=== PATIENT | female | born 1970 | race Caucasian/White ===

== ENCOUNTER 2017-11-17 10:17 | Emergency (ER) | payer OTHER ==
[~2017-11-17] VITALS: Ht 170.2 cm; Wt 58.1 kg
--- NOTE | 2017-11-17 12:33 | ED HEAD/FACIAL INJ COMPLAINT ---
History of Present Illness General Chief Complaint: Fall Stated Complaint: FALL THIS AM ON RIGHT SIDE, HIT HEAD, +LOC Source: patient Exam Limitations: no limitations Vital Signs & Intake/Output Vital Signs & Intake/Output Vital Signs Date Time Temp Pulse Resp B/P B/P Pulse O2 O2 Flow FiO2 Mean Ox Delivery Rate 11/17 1415 97.8 58 18 97/61 100 11/17 1210 98 Room Air 11/17 1035 98.7 54 20 119/77 96 Room Air Allergies Coded Allergies: Sulfa (Sulfonamide Antibiotics) (UNKNOWN 11/17/17) Reconcile Medications No Known Home Medications Triage Note: PT STATES SHE BECAME ILL LAST NIGHT AFTER EATING SUSHI. THE LAST TIME SHE GOT UP TO VOMIT SHE WALKED INTO THE BATHROOM AND "BLACKED OUT". STATES SHE FELL AND HIT THE TILE FLOOR WITH +LOC. PT C/O H/A AND BODY PAIN AND C-SPINE TENDERNESS. C-COLLAR PLACED Triage Nurses Notes Reviewed? yes Onset: Evening Severity: moderate Severity Numbers: 7 Location: global Method of Injury: direct blow Loss of Consciousness: brief (seconds) Associated Symptoms: headaches HPI: 47-year-old female presented to the emergency department reporting that she was having nausea and vomiting yesterday related to food she had eaten. She states that about 2 AM this morning she had gotten up to go to the bathroom to vomit and she states the next thing she knew she was on the floor and her was standing over her. She states that she had hit her head because she had felt bleeding from her forehead and she had loss consciousness. She states she feels overall tired, nauseous however uncertain if this is related to GI bug or head trauma. She also states that this morning she felt that she was taking longer to process things and a family member had thoughts that she did not seem herself She reports the most pain being in her head and her right shoulder, although she does report full body pain. (Kirstie Mak) Past History Travel History Traveled to [place] past 21 day No Medical History Any Pertinent Medical History? see below for history Neurological: NONE EENT: NONE Cardiovascular: NONE Respiratory: NONE Gastrointestinal: Crohn's disease Hepatic: NONE Renal: NONE Musculoskeletal: NONE Psychiatric: NONE REHABILITATOR/Reproductive: mirena iud Surgical History Surgical History: non-contributory Psychosocial History What is your primary language Khmer Tobacco Use: Current Daily Use Daily Tobacco Use Amount/Type: => 5 Cigarettes daily ETOH Use: occasional use Illicit Drug Use: denies illicit drug use Family History Hx Contributory? No (Kirstie Mak) Review of Systems Review of Systems Constitutional: Reports: see HPI. EENTM: Reports: no symptoms. Respiratory: Reports: no symptoms. Cardiovascular: Reports: no symptoms. GI: Reports: no symptoms. Genitourinary: Reports: no symptoms. Musculoskeletal: Reports: see HPI. Skin: Reports: no symptoms. Neurological/Psychological: Reports: see HPI. Hematologic/Endocrine: Reports: no symptoms. Immunologic/Allergic: Reports: no symptoms. All Other Systems: Reviewed and Negative (Kirstie Mak) Physical Exam Physical Exam General Appearance: well developed/nourished, no apparent distress, alert, awake , comfortable Head: normal appearance, small contusion on right forehead, small healed 2cm linear laceration Eyes: Bilateral: normal appearance, PERRL, EOMI. Ears, Nose, Throat: normal pharynx, normal ENT inspection, hearing grossly normal, normal tympanic membranes, no blood Neck: normal inspection, supple, limited range of motion, c-spine collar in place Respiratory: normal breath sounds, chest non-tender, no respiratory distress, lungs clear Cardiovascular: regular rate/rhythm, normal peripheral pulses Gastrointestinal: normal bowel sounds, soft, non-tender Back: normal inspection, normal range of motion, no vertebral tenderness Extremities: normal inspection, normal capillary refill, normal range of motion, no edema, pelvis stable Psychiatric: awake, alert, oriented x 3 Cranial Nerves: normal hearing, normal speech, PERRL, cranial nerves all normal, oriented to person, place, and time Motor/Sensory: no motor/sensory deficits Skin: intact, normal color, warm/dry (Kirstie Mak) Progress Differential Diagnosis: c-spine injury, ICH, orbit fracture Plan of Care: Orders Procedure Date/time Status TROPONIN LEVEL 11/17 1230 Complete LIPASE 11/17 1230 Complete COMPREHENSIVE METABOLIC PANEL 11/17 1230 Complete CBC WITHOUT DIFFERENTIAL 11/17 1230 Complete EKG 11/17 1230 Active Laboratory Tests 11/17/17 1257: Anion Gap 11, Estimated GFR > 60, BUN/Creatinine Ratio 22.9, Glucose 87, Calcium 9.6, Total Bilirubin 0.9, AST 29, ALT 43, Alkaline Phosphatase 73, Troponin I < 0.01, Total Protein 7.5, Albumin 4.4, Globulin 3.1, Albumin/Globulin Ratio 1.4, Lipase 102, CBC w Diff MAN DIFF ORDERED, RBC 5.33, MCV 93.2, MCH 31.3 H, MCHC 33.6, RDW 14.0, MPV 8.8, Gran % 85.5 H, Lymphocytes % 7.3 L, Monocytes % 6.5, Eosinophils % 0.7, Basophils % 0, Absolute Granulocytes 8.9 H, Absolute Lymphocytes 0.8 L, Absolute Monocytes 0.7 H, Absolute Eosinophils 0.1, Absolute Basophils 0, Platelet Estimate ADEQUATE, Normocytic RBCs VERIFIED, Normochromic RBCs VERIFIED 47 year old female with blunt head trauma and LOC this morning at 2 am. Neurological exam and rest of exam unremarkable. No slurred speech or disorientation. Patient was given tylenol, NS, and zofran IV. Tolerated well, feeling better after medication and fluids. Brain imaging/neck imaging and bloodwork normal. Patient offered rx for zofran or pain medication to go home with however she declined, reporting she felt better. She is advised to rest at home, take tylenol/ibuprofen as needed, and discussed the importance of returning to the ED with any headache, visual changes, nausea/vom, or any other new or worsening symptoms. C-spine collar was removed and patient stable upon discharge. Diagnostic Imaging: Viewed by Me: CT Scan. Discussed w/RAD: CT Scan. Radiology Impression: PATIENT: ORTIZ MATAMOROS PRESENT AGE: 47 PATIENT ACCOUNT NO: [id number] : 69 LOCATION: [facility] ([facility]) ORDERING PHYSICIAN: Kirstie BELTRAN SERVICE DATE: 11/17/17 EXAM TYPE: CAT - CT HEAD WO IV CONTRAST EXAMINATION: CT HEAD WITHOUT CONTRAST CLINICAL INFORMATION: Head trauma. COMPARISON: None TECHNIQUE: Contiguous axial imaging was performed from the skull base to vertex without intravenous administration of contrast. DLP: 847.3 mGy-cm FINDINGS: There is no evidence of acute intracranial hemorrhage or territorial infarction. No abnormal mass effect or midline shift is seen. Daugherty to white matter differentiation is well preserved. No extra-axial fluid collections are identified. The ventricles are normal in size. There is no abnormal attenuation within the brain parenchyma. The osseous structures and soft tissues are normal. The mastoid air cells and visualized portions of the paranasal sinuses are well aerated. IMPRESSION: No acute intracranial pathology. DICTATED BY: Rosalio Glynn MD DATE/TIME DICTATED:11/28 ROULETTE DEALER:CHRISTIAN DATE/TIME TRANSCRIBED:11/17/171312 CONFIDENTIAL, DO NOT COPY WITHOUT APPROPRIATE AUTHORIZATION. <Electronically signed in Other Vendor System> SIGNED BY: Rosalio Glynn MD 11/17/171317 , PATIENT: ORTIZ MATAMOROS PRESENT AGE: 47 PATIENT ACCOUNT NO: [id number] : 69 LOCATION: [facility] ([facility]) ORDERING PHYSICIAN: Kirstie BELTRAN SERVICE DATE: 11/17/17 EXAM TYPE: CAT - CT CERV SPINE WO IV CONTRAST EXAMINATION: CT CERVICAL SPINE WITHOUT CONTRAST CLINICAL INFORMATION: Blunt trauma. Neck collar in place. COMPARISON: Head CT from 11/17/2017. TECHNIQUE: Noncontrast multidetector CT imaging examination of the cervical spine was performed. DLP: Please refer to the dose report given on the head CT ( which includes C-spine) FINDINGS: There is mild straightening of the cervical lordosis, presumably related to the presence of a cervical collar. The occipital condyles, C1 and C2 lateral masses, dens and atlantodental articulation are intact. The vertebral body heights and alignment are maintained. No acute fractures in the anterior or posterior elements. No prevertebral soft tissue swelling. At C5-C6, there is mild degenerative disc space narrowing and traction osteophyte formation. The central spinal canal and neural foramina are widely patent. The facet joints are unremarkable. No epidural hematoma or focal fluid collection in the visualized neck. The examined lung apices are clear. Thyroid gland is unremarkable. IMPRESSION: 1. No acute fracture or malalignment of the cervical spine. 2. Mild discovertebral degenerative change of C5-C6. DICTATED BY : Aris Driscoll MD DATE/TIME DICTATED:11/17/171347 ROULETTE DEALER: CHRISTIAN DATE/TIME TRANSCRIBED:11/17/171347 CONFIDENTIAL, DO NOT COPY WITHOUT APPROPRIATE AUTHORIZATION. <Electronically signed in Other Vendor System> SIGNED BY: Aris Driscoll MD 11/17/17 1400 (Kirstie Mak) Departure Departure Disposition: HOME OR SELF CARE Condition: Stable Clinical Impression Primary Impression: Blunt head trauma Qualifiers: Encounter type: initial encounter Qualified Code: S09.8XXA - Other specified injuries of head, initial encounter Referrals: Esperanza Noland MD (PCP/Family) Additional Instructions: Please take ibuprofen or Tylenol as needed. Follow-up with her primary care outpatient on Sunday. Return to the emergency department if you begin to develop worsening headache, visual changes, nausea/vomiting, chest pain, or any other new or worsening symptoms. Departure Forms: Customer Survey General Discharge Information Prescriptions: Current Visit Scripts No Known Home Medications (Kirstie Mak) PA/ELECTR[employer] INSTALLER Co-Sign Statement Statement: ED Attending supervision documentation- I saw and evaluated the patient. I have also reviewed all the pertinent lab results and diagnostic results. I agree with the findings and the plan of care as documented in the PA's/ELECTR[employer] MILK[employer] INSTALLER's documentation. x I have reviewed the ED Record and agree with the PA's/ELECT[employer] INSTALLER's documentation. [] Additions or exceptions (if any) to the PAs/ELECT[employer] INSTALLER's note and plan are summarized below: [] (Casa CARLSON,Larry)
[2017-11-17 13:06] LABS: ABSOLUTE BASOPHIL COUNT 0 /CUMM (0.0-0.2); ABSOLUTE EOSINOPHIL COUNT 0.1 /CUMM (0.0-0.7); ABSOLUTE GRANULOCYTE CT 8.9 /CUMM (1.4-6.5); ABSOLUTE LYMPH COUNT 0.8 /CUMM (1.2-3.4); ABSOLUTE MONOCYTE COUNT 0.7 /CUMM (0.10-0.60); BASOPHIL % 0 % (0.0-2.0); EOSINOPHIL % 0.7 % (0-5); GRANULOCYTE % 85.5 % (42.2-75.2); HEMATOCRIT 49.7 % (37-47); MEAN CORPUSCULAR HGB 31.3 PG (27.0-31.0); MEAN CORPUSCULAR HGB CONC 33.6 G/DL (33.0-37.0); MEAN CORPUSCULAR VOLUME 93.2 FL (81.0-99.0); MEAN PLATELET VOLUME 8.8 FL (7.4-10.4); PLATELET COUNT 240 /CUMM (130-400); RED BLOOD CELL CT 5.33 /CUMM (4.20-5.40); WHITE BLOOD CELL COUNT 10.4 /CUMM (4.8-10.8)
--- NOTE | 2017-11-17 13:18 | CT SCAN REPORT ---
EXAMINATION: CT HEAD WITHOUT CONTRAST CLINICAL INFORMATION: Head trauma. COMPARISON: None TECHNIQUE: Contiguous axial imaging was performed from the skull base to vertex without intravenous administration of contrast. DLP: 847.3 mGy-cm FINDINGS: There is no evidence of acute intracranial hemorrhage or territorial infarction. No abnormal mass effect or midline shift is seen. Daugherty to white matter differentiation is well preserved. No extra-axial fluid collections are identified. The ventricles are normal in size. There is no abnormal attenuation within the brain parenchyma. The osseous structures and soft tissues are normal. The mastoid air cells and visualized portions of the paranasal sinuses are well aerated. IMPRESSION: No acute intracranial pathology.
--- NOTE | 2017-11-17 14:00 | CT SCAN REPORT ---
EXAMINATION: CT CERVICAL SPINE WITHOUT CONTRAST CLINICAL INFORMATION: Blunt trauma. Neck collar in place. COMPARISON: Head CT from 11/17/2017. TECHNIQUE: Noncontrast multidetector CT imaging examination of the cervical spine was performed. DLP: Please refer to the dose report given on the head CT (which includes C-spine) FINDINGS: There is mild straightening of the cervical lordosis, presumably related to the presence of a cervical collar. The occipital condyles, C1 and C2 lateral masses, dens and atlantodental articulation are intact. The vertebral body heights and alignment are maintained. No acute fractures in the anterior or posterior elements. No prevertebral soft tissue swelling. At C5-C6, there is mild degenerative disc space narrowing and traction osteophyte formation. The central spinal canal and neural foramina are widely patent. The facet joints are unremarkable. No epidural hematoma or focal fluid collection in the visualized neck. The examined lung apices are clear. Thyroid gland is unremarkable. IMPRESSION: 1. No acute fracture or malalignment of the cervical spine. 2. Mild discovertebral degenerative change of C5-C6.
[2017-11-17 14:15] VITALS: BP 97/61
== END 2017-11-17 15:13 ==
LOC: ERH 10:17
PROVIDERS: Physician Assistant
DX: S09.90XA Unspecified injury of head, initial encounter (principal); R11.2 Nausea with vomiting, unspecified; W19.XXXA Unspecified fall, initial encounter
CPT/HCPCS: 93005; 93010; 96374; 96375; J0131; J2405